=== PATIENT | male | born 2000 | race Caucasian/White ===

== ENCOUNTER 2022-04-13 14:41 | Emergency (ER) | payer BC, SELFPAY ==
[2022-04-13 14:41] VITALS: BP 130/81; PULSE 90; RESP 18; TEMP 36.4; O2SAT 100; BMI 28.0
[2022-04-13 15:03] VITALS: BP 130/81; PULSE 90; RESP 18; TEMP 36.4; O2SAT 100
--- NOTE | 2022-04-13 15:50 | EX.ED.DYSGE1 ---
HPI History of Present Illness Chief Complaint: Nausea/Vomiting Narrative Narrative: 22-year-old male presenting with fever, chills, body aches, headache since earlier this morning at about 5 AM. He states he took nothing for headache or pain. He states over the course of the day he developed nausea and vomiting. He is held out water intermittently. He states he does not have any medical problems. He is unknown if he has been around anybody ill. No urinary complaints. No chest pain or shortness of breath. No cough PFSH PFSH Medical History no medical history Home Medications ondansetron 4 mg disintegrating tablet 4 mg PO Q8H PRN nausea and vomiting #14 tabs 04/13/22 [Rx Last Taken Unknown] Allergy/AdvReac Type Severity Reaction Status Date / Time No Known Allergies Allergy Verified 04/13/22 14:44 Surgical History (Updated 04/13/22 @ 15:02 by Evon Rodriguez) History of tonsillectomy Social History Smoking Status: Never smoker EXAM Physical Exam Const Vital Signs: 04/13/22 14:41 04/13/22 15:03 Temperature 97.5 F L 97.5 F L Temperature Source Temporal Temporal Pulse Rate 90 90 Respiratory Rate 18 18 Blood Pressure 130/81 H 130/81 H Blood Pressure Mean 97 97 Pulse Ox 100 100 Oxygen Delivery Method Room Air Room Air MDM MDM MDM Narrative Medical decision making narrative: Patient tested positive for COVID-19. He was given Zofran 4 mg p.o. and Tylenol. On reevaluation his headache is gone and shows his nausea. He feels well. Patient will be discharged home with a prescription for Zofran. Counseled to alternate Tylenol and ibuprofen. He is counseled to drink plenty of fluids. Return precautions discussed. Impression: 1. COVID-19 2. nausea/vomiting 3. Headache Lab Data Attestation: I reviewed the patient's lab results. Discharge Plan Triage Chief Complaint: Nausea/Vomiting ED Provider: [facility] Dx/Rx/DC Orders Instructions: Coronavirus Disease 2019 (COVID-19): Caring for Yourself or Others Prescriptions: New ondansetron 4 mg tablet,disintegrating 4 mg PO Q8H PRN (Reason: nausea and vomiting) Qty: 14 0RF Primary Care Provider: Agustín Castillo Referrals: Agustín Castillo MD [Primary Care Provider] - Disposition Disposition: Home, Self Care
[2022-04-13] MEDS: Ondansetron ODT 4 MG Tablet PO (16:00)
[2022-04-13] MEDS: Acetaminophen 500 MG Tablet 1000 MG PO (16:00)
[2022-04-13 17:20] VITALS: BP 124/87; PULSE 85; RESP 18; O2SAT 97
== END 2022-04-13 17:22 | disposition home or self-care (01) ==
PROVIDERS: Emergency Provider Student in an Organized Health Care Education/Training Program; PCP Pediatrics; Visit Provider Student in an Organized Health Care Education/Training Program
DX: U07.1 COVID-19 (principal); R11.2 Nausea with vomiting, unspecified; R51.9 Headache, unspecified
CPT/HCPCS: 87811; 99282